=== PATIENT | male | born 1975 | race Two or more races ===

== ENCOUNTER 2018-12-30 19:53 | Emergency (ER) | payer SELFPAY ==
[~2018-12-30] VITALS: Ht 182.9 cm; Wt 94.7 kg
[2018-12-30] MEDS ORDERED: KETOROLAC 60MG/2ML VIAL IM STA (23:40)
[2018-12-31 00:46] LABS: BASOPHILS % 0.7 % (0.0-2.0); HEMATOCRIT. 45.5 % (42.0-52.0); HEMOGLOBIN. 15.6 g/dL (14.0-18.0); LYMPHOCYTES % 27.8 % (20.0-50.0); MEAN CORPUSCULAR VOLUME 90.3 fL (80.0-94.0); MEAN PLATELET VOLUME 10.7 fl (7.4-10.4); MONOCYTES % 8.5 % (2.0-8.0); PLATELET 141 x1000/uL (130-400); RED BLOOD CELL COUNT 5.04 mill/uL (4.7-6.1)
[2018-12-31 00:49] LABS: INR 1.1; PROTHROMBIN TIME 11.4 sec (9.1-11.1)
[2018-12-31 00:50] LABS: CHLORIDE 100 mEq/L (98-107)
[2018-12-31] MEDS ORDERED: POTASSIUM CHLORIDE 20MEQ TABLET SR PO ONE (02:30)
[2018-12-31 02:51] VITALS: BP 133/80
== END 2018-12-31 03:01 | disposition home or self-care (01) ==
LOC: ER 19:53
DX: R10.0 Acute abdomen (principal); R18.8 Other ascites; E87.6 Hypokalemia
CPT/HCPCS: 36415; 74176; 80053; 83690; 85025; 85610; 93005; 96372; 99284; J1885

== ENCOUNTER 2023-05-24 20:14 | Emergency (ER) | payer OTHER ==
[~2023-05-24] VITALS: Ht 167.6 cm; Wt 83.0 kg
[2023-05-24 20:15] VITALS: O2SAT 100
[2023-05-24] MEDS ORDERED: ONDANSETRON HCL 4MG/2ML INJ IV ONE (20:45)
[2023-05-24] MEDS ORDERED: FAMOTIDINE 20MG/2ML VIAL IV ONE (20:45)
[2023-05-24] MEDS ORDERED: MAGNESIUM/ALUMINUM HYDROXIDE/SIMETHICONE 30ML UDC PO ONE (20:45)
[2023-05-24] MEDS ORDERED: SODIUM CHLORIDE 0.9% 1,000 ML IV ONE (20:45)
[2023-05-24 21:32] LABS: CHLORIDE 104 mEq/L (98-107)
[2023-05-24] MEDS ORDERED: POTASSIUM CHLORIDE 20MEQ/PACKET PO NR (21:45)
[2023-05-24 21:46] LABS: ETHANOL BLOOD 419 mg/dL (-10)
[2023-05-24 23:57] LABS: HEMATOCRIT 33.9 % (42.0-52.0); HEMOGLOBIN 10.9 g/dL (14.0-18.0); MEAN CORPUSCULAR HEMOGLOBIN 24.8 pg (28.0-32.0); MEAN CORPUSCULAR VOLUME 76.8 fL (80.0-94.0); RED BLOOD CELL COUNT 4.42 mill/uL (4.7-6.1)
[2023-05-25 01:01] VITALS: BP 110/68; PULSE 80; RESP 15; TEMP 98.1
== END 2023-05-25 01:13 | disposition home or self-care (01) ==
LOC: ER 20:14
DX: R07.89 Other chest pain (principal); E11.9 Type 2 diabetes mellitus without complications; I10 Essential (primary) hypertension
CPT/HCPCS: 80053; 80320; 83880; 85027; 84484; 36415; 71045; 96374; 96375; 99285; J3490; J2405; J7030; Z7610; G0480

== ENCOUNTER 2024-01-25 19:52 | Emergency (ER) | payer OTHER ==
[~2024-01-25] VITALS: Ht 182.9 cm; Wt 79.0 kg
[2024-01-25 21:35] LABS: BASOPHILS % 1.2 % (0.0-2.0); EOSINOPHILS % 2.2 % (0.0-5.0); HEMATOCRIT. 33.2 % (42.0-52.0); HEMOGLOBIN. 11.2 g/dL (14.0-18.0); LYMPHOCYTES % 16.5 % (20.0-50.0); MEAN CORPUSCULAR HEMOGLOBIN 27.3 pg (28.0-32.0); MEAN CORPUSCULAR HGB CONC 33.8 g/dL (31.0-37.0); MEAN CORPUSCULAR VOLUME 80.7 fL (80.0-94.0); MONOCYTES % 10.4 % (2.0-8.0); NEUTROPHILS % 69.7 % (40.0-76.0); RED BLOOD CELL COUNT 4.12 mill/uL (4.7-6.1); WHITE BLOOD COUNT 6.2 x1000/uL (4.5-11.0)
[2024-01-25 21:36] LABS: DIFFERENTIAL COMMENT 1
[2024-01-25 21:57] LABS: ALANINE AMINOTRANSFERASE 22 IU/L (10-49); ALBUMIN 3.6 g/dL (3.2-4.8); ASPARTATE AMINOTRANSFERASE 151 IU/L (<34); BILIRUBIN TOTAL 2.1 mg/dL (0.1-1.0); CARBON DIOXIDE 28 mEq/L (21-32); CHLORIDE 103 mEq/L (98-107); CREATININE 0.6 mg/dL (0.6-1.3); GLUCOSE 126 mg/dL (70-105); POTASSIUM 3.2 mEq/L (3.5-5.1); PROTEIN TOTAL 8.4 g/dL (6.0-8.3); SODIUM 139 mEq/L (136-145)
[2024-01-25 21:58] LABS: UREA NITROGEN BLOOD < 5 mg/dL (9-23)
[2024-01-25 21:59] LABS: MEAN PLATELET VOLUME 9.1 fl (7.4-10.4)
[2024-01-25 22:01] LABS: ETHANOL BLOOD 419 mg/dL (<10)
[2024-01-26 02:53] VITALS: BP 145/92; PULSE 125; RESP 16; TEMP 96.8; O2SAT 99
[2024-01-26 10:46] LABS: PLATELET 20 x1000/uL (130-400)
== END 2024-01-26 02:45 | disposition home or self-care (01) ==
LOC: ER 19:52
DX: F10.20 Alcohol dependence, uncomplicated (principal); E11.9 Type 2 diabetes mellitus without complications; D69.6 Thrombocytopenia, unspecified; R41.0 Disorientation, unspecified
CPT/HCPCS: 80053; 80320; 82962; 85025; 36415; 71045; 70450; 99284; Z7610 ×2; G0480